=== PATIENT | female | born 1985 | race Caucasian/White ===

== ENCOUNTER 2022-01-15 11:12 | Emergency (ER) | payer OTHER, SELFPAY ==
--- NOTE | ~2022-01-15 | XR_ITS ---
LUMBAR SPINE INDICATION: Low back pain TECHNIQUE: 3 views lumbar spine COMPARISON: No prior studies for comparison. FINDINGS: No fracture, subluxation or dislocation. No evidence for spondylolysis or spondylolisthesi s. Vertebral bodies and disk spaces are preserved. IMPRESSION: 1: No significant abnormality of the lumbar spine identified. Reviewed, dictated and finalized at location B. [facility] RN
[2022-01-15 11:36] VITALS: BP 118/71; PULSE 76; RESP 18; TEMP 36.6; O2SAT 98
--- NOTE | 2022-01-15 11:45 | ED.BACK ---
HPI - Back Pain/Injury General Chief Complaint: Back Pain/Injury Stated Complaint: Lower Back Pain Time Seen by Provider: 01/15/22 11:37 Source: patient Mode of arrival: ambulatory Limitations: no limitations History of Present Illness HPI Narrative: 36-year-old female presented for complaint of low back pain flareup, onset today. She states she completed physical therapy almost 1 week ago for the same complaint, pain was improved until she changed her shoes about 5 days ago, feeling a shift and shooting pain across lower back. Pain was improved, able to workout 3 days ago. States pain flared again today while changing her shoes again, in a bent over/standing position when she felt shooting pain across lower back after 'vertebrae shifted.' Aggravated by any twisting movement. Rates 8/10 with movement, 3/10 at rest. Gait is affected. Taking Aleve without relief. denies numbness, tingling, weakness of LE's or pain radiating to the legs. States she was told 14 years ago she had DDD. Related Data Home Medications Medication Instructions Recorded Confirmed Lexapro 01/15/22 Allergies Allergy/AdvReac Type Severity Reaction Status Date / Time No Known Allergies Allergy Verified 01/15/22 11:45 Review of Systems Review of Systems: CONSTITUTIONAL: Denies body aches, fever, chills, or sweats. EYES: Denies visual changes, redness, or discharge. ENT: Denies rhinorrhea, congestion, sore throat, or otalgia. CARDIOVASCULAR: Denies chest pain, palpitations, or edema. RESPIRATORY: Denies cough or dyspnea. GASTROINTESTINAL: Denies abdominal pain, nausea, vomiting, or diarrhea. GENITOURINARY: Denies dysuria or hematuria. SKIN: Denies rash, itching, or wounds. MUSCULOSKELETAL: Endorses low back pain. Slow steady gait NEUROLOGIC: Denies headache, numbness, tingling, or weakness. PSYCH: Denies depression or anxiety. All systems reviewed & are unremarkable except as noted in HPI and below PMFSH Comments At time of signature, I have reviewed and agree with nursing past medical, surgical, social and family history unless otherwise noted. Please see nursing chart for further information. There is no relevant family history pertinent to the presenting complaint Exam Narrative: GENERAL: Appears in pain, in no acute distress. HEAD: Normocephalic, atraumatic. EYES: EOMI. No redness or drainage. Conjunctivae normal. ENT: Mucous membranes pink and moist. No rhinorrhea. NECK: Normal AROM. Supple. No lymphadenopathy. CHEST: No respiratory distress. Clear to auscultation. HEART: Regular rate and rhythm. No murmur appreciated. Normal peripheral pulses. ABDOMEN: Soft, nontender, nondistended, normal active bowel sounds. MUSCULOSKELETAL: Vertebral point tenderness to L4-5 region, BLE's strong/egual but pain illicited with leg extension, pt is guarded due to pain. Gait is slow. EXTREMITIES: Limited range of motion to BLE due to pain. No edema. SKIN: Warm, dry, no rash. Capillary refill normal. Normal skin turgor. NEURO: No focal deficits. Alert and oriented x3. Gait steady/slow. PSYCH: Normal affect. Course Course Emergency Course: Xray reviewed with pt. We discussed the importance of close follow up with PCP and s/s to go to ER. v/u Patient is aware of diagnosis, understands and agrees to treatment plan. Anticipatory guidance given. Portions of this record may have been created with voice recognition software Level of Care: Express Care Visit Vital Signs Vital signs: Vital Signs Temperature 97.8 F 01/15/22 11:36 Pulse Rate 76 01/15/22 11:36 Respiratory Rate 18 01/15/22 11:36 Blood Pressure 118/71 01/15/22 11:36 Pulse Oximetry 98 01/15/22 11:36 Temperature 97.8 F 01/15/22 11:36 Pulse Rate 76 01/15/22 11:36 Respiratory Rate 18 01/15/22 11:36 Blood Pressure 118/71 01/15/22 11:36 Pulse Oximetry 98 01/15/22 11:36 MDM - Back Pain/Injury Differential Diagnosis Differential diagnosis: Lik
== END 2022-01-15 12:18 | disposition home or self-care (01) ==
PROVIDERS: Emergency Provider Nurse Practitioner Family
DX: M54.50 Low back pain, unspecified (principal)
CPT/HCPCS: 72100; 99203; G0463